=== PATIENT | male | born 1985 | race Caucasian/White ===

== ENCOUNTER 2016-11-03 01:43 | Inpatient (IN) | payer OTHER ==
[~2016-11-03] VITALS: Ht 175.3 cm; Wt 63.7 kg
[2016-11-03] MEDS ORDERED: LEVE250 PO (01:52)
[2016-11-03 01:55] VITALS: BP 120/77; PULSE 110; RESP 16; TEMP 97.9; O2SAT 97
[2016-11-03 02:32] LABS: AUTOMATED NEUTROPHIL # 4.5 TH/MM3 (1.8-7.7); BASOPHIL # 0.1 TH/MM3 (0-0.2); BASOPHIL % 0.9 % (0.0-2.0); EOSINOPHIL % 0.5 % (0.0-4.0); HEMATOCRIT 47.2 % (39.0-51.0); HEMO FLAGS DIFF FINAL; LYMPH % 27.2 % (9.0-44.0); LYMPHOCYTE # 1.9 TH/MM3 (1.0-4.8); MEAN CELL VOLUME 90.7 FL (80.0-100.0); MEAN CORPUSCULAR HEMOGLOBIN 32.2 PG (27.0-34.0); MEAN CORPUSCULAR HGB CONC 35.5 % (32.0-36.0); MONO % 7.3 % (0.0-8.0); NEUT % 64.1 % (16.0-70.0); PLATELET COUNT 242 TH/MM3 (150-450)
[2016-11-03 02:38] LABS: AMPHETAMINE, URINE NEG (NEG); BARBITURATES, URINE NEG (NEG); COCAINE, URINE NEG (NEG)
[2016-11-03 03:00] LABS: ALKALINE PHOSPHATASE 68 U/L (45-117); ALT (GPT) 43 U/L (12-78); TOTAL BILIRUBIN ADULT 0.4 MG/DL (0.2-1.0)
[2016-11-03 03:01] LABS: ANION GAP 10 MEQ/L (5-15); AST (GOT) 40 U/L (15-37); BICARBONATE 26.1 MEQ/L (21.0-32.0); BLOOD UREA NITROGEN 9 MG/DL (7-18); CHLORIDE 111 MEQ/L (98-107); GLOMERULAR FILTRATION RATE 88 ML/MIN (>89); POTASSIUM 3.9 MEQ/L (3.5-5.1); SODIUM (NA) 147 MEQ/L (136-145)
[2016-11-03] MEDS ORDERED: oxyCODONE/ACETAMINOPHEN 5 MG/325 MG TAB PO ONE (03:15)
[2016-11-03] MEDS ORDERED: NICOTINE 14 MG/24 HR PATCH TD ONE (03:45)
[2016-11-03] MEDS ORDERED: MORPHINE SULFATE 4 MG/ML INJ IV PUSH ONE ×2 (04:00→08:00)
[2016-11-03] MEDS ORDERED: ONDANSETRON HCL 4 MG/2 ML VIAL IV PUSH ONE (04:15)
--- NOTE | 2016-11-03 04:27 | RADRPT ---
EXAM DATE/TIME: 11/03/2016 03:12 [place] COMPARISON: No previous studies available for comparison. INDICATIONS : Patient states he cut himself with a razor blade, laceration. MEDICAL HISTORY : None. SURGICAL HISTORY : None. ENCOUNTER: Initial ACUITY: 1 day PAIN SCORE: 7/10 LOCATION: Left Forearm FINDINGS: Two view examination of the left forearm demonstrates no evidence of fracture or dislocation. Bony m ineralization is normal. Soft tissue laceration distal forearm. CONCLUSION: 1. No acute fracture. Jatinder Gonzalez MD on November 03, 2016 at 4:24 Board Certified Radiologist. This report was verified electronically.
--- NOTE | 2016-11-03 04:40 | PD ---
Physical Exam Time Seen by Provider: 04:00 Data Data Last Documented VS Vital Signs Date Time Temp Pulse Resp B/P Pulse Ox O2 Delivery O2 Flow Rate FiO2 11/03/16 01:55 97.9 110 16 120/77 97 Orders Complete Blood Count With Diff (11/03/16 02:05) Comprehensive Metabolic Panel (11/03/16 02:05) Drug Screen, Random Urine (11/03/16 02:05) Alcohol (Ethanol) (11/03/16 02:05) Psych Screen (11/03/16 02:05) Forearm (2vws) (11/03/16 ) Oxycodone-Acetamin 5-325 Mg (Percocet (11/03/16 03:15) Nicotine 14 Mg Patch.24 Hr (Habitrol 14 (11/03/16 03:45) Morphine Inj (Morphine Inj) (11/03/16 04:00) Ondansetron Inj (Zofran Inj) (11/03/16 04:15) Consult Hand Surgery (11/03/16 ) Labs Laboratory Tests Test 11/03/16 11/03/16 02:10 02:15 White Blood Count 7.0 TH/MM3 Red Blood Count 5.20 MIL/MM3 Hemoglobin 16.7 GM/DL Hematocrit 47.2 % Mean Corpuscular Volume 90.7 FL Mean Corpuscular Hemoglobin 32.2 PG Mean Corpuscular Hemoglobin 35.5 % Concent Red Cell Distribution Width 13.0 % Platelet Count 242 TH/MM3 Mean Platelet Volume 8.1 FL Neutrophils (%) (Auto) 64.1 % Lymphocytes (%) (Auto) 27.2 % Monocytes (%) (Auto) 7.3 % Eosinophils (%) (Auto) 0.5 % Basophils (%) (Auto) 0.9 % Neutrophils # (Auto) 4.5 TH/MM3 Lymphocytes # (Auto) 1.9 TH/MM3 Monocytes # (Auto) 0.5 TH/MM3 Eosinophils # (Auto) 0.0 TH/MM3 Basophils # (Auto) 0.1 TH/MM3 CBC Comment DIFF FINAL Differential Comment Sodium Level 147 MEQ/L Potassium Level 3.9 MEQ/L Chloride Level 111 MEQ/L Carbon Dioxide Level 26.1 MEQ/L Anion Gap 10 MEQ/L Blood Urea Nitrogen 9 MG/DL Creatinine 1.00 MG/DL Estimat Glomerular Filtration 88 ML/MIN Rate Random Glucose 84 MG/DL Calcium Level 9.0 MG/DL Total Bilirubin 0.4 MG/DL Aspartate Amino Transf 40 U/L (AST/SGOT) Alanine Aminotransferase 43 U/L (ALT/SGPT) Alkaline Phosphatase 68 U/L Total Protein 7.4 GM/DL Albumin 4.2 GM/DL Ethyl Alcohol Level 163 MG/DL Urine Opiates Screen NEG Urine Barbiturates Screen NEG Urine Amphetamines Screen NEG Urine Benzodiazepines Screen POS Urine Cocaine Screen NEG Urine Cannabinoids Screen NEG MDM Medical Record Reviewed: Yes Supervised Visit with SUKHI: No Narrative Course This patient presents with self-inflicted lacerations to the volar aspect of the left wrist, I was asked to repair the lacerations. The patient gave verbal consent. Examination reveals larger linear horizontal lacerations across the volar aspect of the left wrist as well as several smaller more superficial ones. In the more distal of the deep lacerations there is an obvious full- thickness laceration to what appears to be the palmaris longus tendon. There is also a partial flexor tendon laceration. At the most ulnar aspect of the distal wound with approximately 25% to 30% thickness injury. The patient maintains full normal range of motion and utilizing the left wrist and hand. He has limited range of motion in the left third finger secondary to a previous one. After the wounds were anesthetized and says that he can moves his left wrist at baseline. Lacerations were repaired primarily utilizing sutures. Patient tolerated procedure well. Procedures Procedure Narrative LACERATION LOCATION: Volar left wrist LENGTH: 4 cm NUMBER OF STITCHES/CHAVO: 8 REPAIR: The area of the laceration was prepped with Betadine and sterilely draped. The laceration was infiltrated with 1% lidocaine with epinephrine. The wound was copiously irrigated and explored with evidence of damage due to flexor tendons. The wound was closed using 5-0 nylon simple interrupted. This was a single layer repair. A sterile dressing was applied. The patient was advised to keep the dressing clean and dry. Patient tolerated the procedure well. LACERATION LOCATION: Volar left wrist LENGTH: 4 cm NUMBER OF STITCHES/CHAVO: 8 REPAIR: The area of the laceration was prepped with Betadine and sterilely draped. The laceration was infiltrated with 1% lidocaine with epinephrine. The wound was copiously irrigated and explored with no evidence of tendon, neurovascular damage. The wound was closed using 5-0 nylon simple interrupted. This was a single layer repair. A sterile dressing was applied. The patient was advised to keep the dressing clean and dry. Patient tolerated the procedure well. Yanick Guillermo Nov 03, 2016 04:40
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
[2016-11-03 09:22] VITALS: BP 120/65; PULSE 65; RESP 20; TEMP 98.5; O2SAT 99
[2016-11-03] MEDS ORDERED: ACETAMINOPHEN 325 MG TAB PO ONE (09:30)
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
[2016-11-03] MEDS ORDERED: ALUMINUM/MAGNESIUM/SIMETH 30 ML CUP PO PRN ×2 (13:00→14:30)
[2016-11-03] MEDS ORDERED: ACETAMINOPHEN/HYDROcodone 325 MG/5 MG TAB PO ONE (13:00)
[2016-11-03] MEDS ORDERED: MAGNESIUM HYDROXIDE SUSP 30 ML CUP PO PRN ×2 (13:00→14:30)
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
[2016-11-03] MEDS: buPROPion HCL 150 MG SUSTAINED RELEASE TAB PO SCH ×2 (14:15→20:57)
[2016-11-03] MEDS ORDERED: LORazepam 2 MG/ML VIAL IM PRN (14:30)
[2016-11-03] MEDS ORDERED: ACETAMINOPHEN 325 MG TAB PO PRN (14:30)
[2016-11-03] MEDS ORDERED: traZODone HCL 50 MG TAB PO PRN (14:30)
[2016-11-03] MEDS ORDERED: NICOTINE 21 MG/24 HR PATCH T-DERMAL SCH (14:30)
[2016-11-03 16:00] VITALS: BP 123/81; PULSE 62; RESP 12; TEMP 98.7; O2SAT 99
[2016-11-03] MEDS: ACETAMINOPHEN 325 MG TAB PO PRN (16:27)
[2016-11-03] MEDS: LORazepam 0.5 MG TAB PO PRN (19:38)
--- NOTE | 2016-11-03 23:21 | PD.ORT.PN ---
Objective Vitals Vital Signs Date Time Temp Pulse Resp B/P Pulse Ox O2 Delivery O2 Flow Rate FiO2 11/03/16 16:00 98.7 62 12 123/81 99 11/03/16 09:22 98.5 65 20 120/65 99 11/03/16 04:16 20 11/03/16 04:16 20 11/03/16 01:55 97.9 110 16 120/77 97 11/03/16 01:52 16 Result Diagram: 11/03/1620911/03/16209 Imaging Last 24 hours Impressions Radius/Ulna X-Ray 11/03/16 0000 Signed Impressions: Service Date/Time: October 03:12 - CONCLUSION: 1. No acute fracture. Jatinder Gonzalez MD Assessment & Plan Assessment and Plan Called regarding wrist laceration with laceration to palmaris longus and partial laceration to ECU by ER. Recommend outpatient followup once cleared by psychiatry. Ximena Adam MD Nov 03, 2016 23:21
[2016-11-04 06:24] VITALS: BP 123/67; PULSE 54; RESP 16; TEMP 97.6
[2016-11-04] MEDS: DIAZEPAM 5 MG TAB PO PRN ×2 (06:28→18:07)
[2016-11-04] MEDS: ACETAMINOPHEN 325 MG TAB PO PRN (06:29)
[2016-11-04 07:12] LABS: ANION GAP 5 MEQ/L (5-15); BICARBONATE 29.2 MEQ/L (21.0-32.0); BLOOD UREA NITROGEN 17 MG/DL (7-18); CHLORIDE 110 MEQ/L (98-107); GLOMERULAR FILTRATION RATE 84 ML/MIN (>89); POTASSIUM 4.2 MEQ/L (3.5-5.1); SODIUM (NA) 144 MEQ/L (136-145)
[2016-11-04 07:14] LABS: HDL CHOLESTEROL 50.6 MG/DL (40.0-60.0); LDL CHOLESTEROL 55 MG/DL (0-99)
[2016-11-04] MEDS: buPROPion HCL 150 MG SUSTAINED RELEASE TAB PO SCH ×2 (08:50→20:55)
[2016-11-04] MEDS: LORazepam 0.5 MG TAB PO PRN ×2 (08:50→21:20)
[2016-11-04] MEDS: REMOVE OLD NICODERM (NICOTINE) PATCH TD SCH (08:51)
[2016-11-04] MEDS: NICOTINE 21 MG/24 HR PATCH TD SCH (08:51)
[2016-11-04] MEDS ORDERED: REMOVE OLD NICODERM (NICOTINE) PATCH TD SCH (09:00)
[2016-11-04 10:52] LABS: HEMOGLOBIN A1a 1.2 %; HEMOGLOBIN A1b 0.8 %; HEMOGLOBIN Ao 86.4 %; HEMOGLOBIN F 1.1 %; HEMOGLOBIN LA1C 1.7 %; HEMOGLOBIN P3 3.2 %
--- NOTE | 2016-11-04 11:29 | HHI.PYPN ---
Subjective Remarks Patient was seen and discussed with the staff rn. Patient reported that he has been complaining of pain and not being able to mow his fingers which frustrates him. He wants to go home soon. Denied any active suicidal ideation intentions or plan. No behavior or management problem reported. His willing to take the medication no side effects were complained. Continue with the same treatment Review of Systems Except as stated in HPI: all other systems reviewed are Neg Psychiatric: COMPLAINS OF: Anxiety, Mood changes, Depression Objective Alert: Yes [place]: Person (ox4) Mood: Anxious, Depressed Affect: Euthymic Memory Intact: Recent (mildly impaired) Hallucinations: Other (negative) Delusions: No Delusion Type: Other (no obvious delusional material voiced) Suicidal: Ideation (denies any) Homicidal: Ideation (denies any) Insight/Judgement Fair Labs Test 11/04/16 06:00 Sodium Level 144 MEQ/L Potassium Level 4.2 MEQ/L Chloride Level 110 MEQ/L Carbon Dioxide Level 29.2 MEQ/L Anion Gap 5 MEQ/L Blood Urea Nitrogen 17 MG/DL Creatinine 1.04 MG/DL Estimat Glomerular Filtration 84 ML/MIN Rate Random Glucose 75 MG/DL Calcium Level 8.6 MG/DL Triglycerides Level 113 MG/DL Cholesterol Level 128 MG/DL LDL Cholesterol 55 MG/DL HDL Cholesterol 50.6 MG/DL Cholesterol/HDL Ratio 2.52 RATIO Vitals/IOs Vital Signs Date Time Temp Pulse Resp B/P Pulse Ox O2 Delivery O2 Flow Rate FiO2 11/04/16 06:24 97.6 54 16 123/67 11/03/16 16:00 99 Assessment & Plan Problem List: (1) Post traumatic stress disorder ICD Code: F43.10 (2) Substance induced mood disorder ICD Code: F19.94 Assessment & Plan Estimated LOS: days Justification for Cont. Inpt. Monitoring of the medication and safety issue. Watch for any withdrawal symptoms Request HC Surrog/Guard Advoc?: No Hector Calle MD Nov 04, 2016 11:29
[2016-11-04] MEDS: diphenhydrAMINE HCL 50 MG CAP PO PRN ×2 (13:35→23:58)
--- NOTE | 2016-11-04 14:44 | PD.CONS ---
HPI Service [facility] Consult Requested By Psychiatry Reason for Consult Left wrist pain Primary Care Physician No Primary Care Physician Diagnoses: History of Present Illness This is a 31-year-old male with history of PTSD and seizures, Alvarez acted, admitted at the psych unit after suicidal ideations after cutting his wrist. At the emergency department, patient's wrist was sutured. We are being consulted for pain management and decreased range of motion. Per patient, since he cut his wrist, he cannot flex his fingers or perform adduction. This is limited by severe pain. Patient denies any nausea, vomiting, fever or chills. No chest pain. Sensation is intact allegedly. Per patient, he has history of seizures but has stopped several years ago. Seizures were secondary to a head trauma. Review of Systems ROS Limitations: Other (All other pertinent systems were reviewed and are negative.) Past Family Social History Allergies: Coded Allergies: Codeine (Verified Allergy, Unknown, 11/03/16) Tramadol (Verified Allergy, Unknown, 11/03/16) Past Medical History History of seizures PTSD Past Surgical History Right thumb surgery Gage surgery Right middle finger surgery Reported Medications None Family History No history of heart problems in the family Social History Smokes about one pack a day, he started August 2016. Occasional alcohol use. Physical Exam Vital Signs Vital Signs Date Time Temp Pulse Resp B/P Pulse Ox O2 Delivery O2 Flow Rate FiO2 11/04/16 06:24 97.6 54 16 123/67 11/03/16 16:00 98.7 62 12 123/81 99 Physical Exam Not in distress, well-nourished, looks stated age PERRL, pink conjunctiva without injection, anicteric Nose without bleeding, airway patent, oropharynx clear Supple neck, no masses or thyromegaly, trachea midline Normal rate and regular rhythm, no murmurs gallops or rubs appreciated. Clear to auscultation and symmetric bilaterally, normal respiratory effort. Normal bowel sounds, soft, non-tender, nondistended, no guarding. Extremities without clubbing, cyanosis, or edema. No rash of generalized distribution. Skin is warm and dry. Wrist laceration ventral aspect, well sutured, mildly tender on palpation, no discharge, no surrounding erythema, healing well. Left hand, decreased range of motion, with severe breakthrough tenderness with passive range of motion. Active range of motion is severely decreased. Sensation is intact and symmetric left and right hand. AAO x3, no cranial nerve deficits, moves all 4 extremities, no focal neurologic deficits Normal mood, appropriate affect Laboratory Laboratory Tests Test 11/04/16 06:00 Sodium Level 144 Potassium Level 4.2 Chloride Level 110 Carbon Dioxide Level 29.2 Anion Gap 5 Blood Urea Nitrogen 17 Creatinine 1.04 Estimat Glomerular Filtration 84 Rate Random Glucose 75 Hemoglobin A1c 4.9 Calcium Level 8.6 Triglycerides Level 113 Cholesterol Level 128 LDL Cholesterol 55 HDL Cholesterol 50.6 Cholesterol/HDL Ratio 2.52 Result Diagram: 11/03/16 0210 11/04/16 0600 Assessment and Plan Assessment and Plan This is a 31-year-old male admitted to psych unit for suicidal ideations, we were consulted for left wrist pain and decreased range of motion Left wrist pain with decreased range of motion-suspicious for ligament/tendon injury, start Percocet for pain control, consult had surgery. Sutures are healing well. No leukocytosis, BMP is normal. Recheck CBC in a few days. X- ray personally reviewed did not show an acute fracture. History of seizures-. Standard Dilantin, no seizures for the last few years, monitor for now. PTSD with suicidal ideation-further management per psychiatry El Osborne MD Nov 04, 2016 14:44
[2016-11-04] MEDS ORDERED: ACETAMINOPHEN 325 MG TAB PO PRN (14:45)
[2016-11-04] MEDS ORDERED: NALOXONE HCL 0.4 MG/ML AMP IV PRN (14:45)
[2016-11-04] MEDS: oxyCODONE/ACETAMINOPHEN 5 MG/325 MG TAB PO PRN ×2 (15:22→21:45)
[2016-11-04 19:51] VITALS: BP 106/62; PULSE 66; RESP 16; TEMP 98.9; O2SAT 100
[2016-11-04] MEDS: oxyCODONE/ACETAMINOPHEN 10 MG/325 MG TAB PO PRN (19:56)
--- NOTE | 2016-11-05 01:55 | PD.ORT.PN ---
Subjective Subjective Remarks Patient reports pain left wrist, denies paresthesias Objective Vitals Vital Signs Date Time Temp Pulse Resp B/P Pulse Ox O2 Delivery O2 Flow Rate FiO2 11/04/16 19:51 98.9 66 16 106/62 100 11/04/16 06:24 97.6 54 16 123/67 Result Diagram: 11/03/16 0210 11/04/16 0600 Imaging Last 24 hours Impressions Radius/Ulna X-Ray 11/03/16 0000 Signed Impressions: Service Date/Time: October 03:12 - CONCLUSION: 1. No acute fracture. Jatinder Gonzalez MD Objective Remarks sutures in place, compartments soft and compressible, sitlt m/u/r, 2+ radial and ulnar pulses, patient unable to make a full fist but able to fire fds/fdp all fingers except middle finger s/p old injury left middle finger Assessment & Plan Assessment and Plan Patient having increasing pain but no sign of compartment syndrome or injury to finger flexors. Denies paresthesias. Pain control per primary team. OT for ROM. Recommend outpatient followup once cleared by psychiatry. Ximena Adam MD Nov 05, 2016 01:55
[2016-11-05] MEDS: oxyCODONE/ACETAMINOPHEN 5 MG/325 MG TAB PO PRN ×2 (05:09→23:35)
[2016-11-05 05:45] VITALS: BP 113/68; PULSE 59; RESP 18; TEMP 98.1
[2016-11-05] MEDS: DIAZEPAM 5 MG TAB PO PRN ×2 (06:04→17:59)
[2016-11-05] MEDS: oxyCODONE/ACETAMINOPHEN 10 MG/325 MG TAB PO PRN ×4 (08:31→20:27)
[2016-11-05] MEDS: buPROPion HCL 150 MG SUSTAINED RELEASE TAB PO SCH ×2 (08:54→20:25)
[2016-11-05] MEDS: REMOVE OLD NICODERM (NICOTINE) PATCH TD SCH (09:00)
[2016-11-05] MEDS: LORazepam 0.5 MG TAB PO PRN ×2 (09:18→21:36)
[2016-11-05] MEDS: NICOTINE 21 MG/24 HR PATCH TD SCH (09:19)
[2016-11-05] MEDS: diphenhydrAMINE HCL 50 MG CAP PO PRN ×2 (12:55→23:34)
--- NOTE | 2016-11-05 14:46 | HHI.PYPN ---
Subjective Remarks Patient was seen and case discussed with nursing. Patient reiterates that his cutting was not secondary to a suicide attempt but in a rational decision thinking that he would be going to alf. Admits to drinking that night but says was only 4 beers. Says his mood is "good." Denies suicidal ideations thought or plan. Admits to history of psychiatric treatment while in alf Objective Alert: Yes [place]: Person (ox4) Mood: Anxious, Depressed Affect: Euthymic Memory Intact: Recent (mildly impaired) Hallucinations: Other (negative) Delusions: No Delusion Type: Other (no obvious delusional material voiced) Suicidal: Ideation (denies any) Homicidal: Ideation (denies any) Insight/Judgement Poor Vitals/IOs Vital Signs Date Time Temp Pulse Resp B/P Pulse Ox O2 Delivery O2 Flow Rate FiO2 11/05/16 05:45 98.1 59 18 113/68 11/04/16 19:51 100 Assessment & Plan Problem List: (1) Post traumatic stress disorder ICD Code: F43.10 (2) Substance induced mood disorder ICD Code: F19.94 Assessment & Plan Continue current treatment plan Justification for Cont. Inpt. Patient would decompensate in a less restrictive setting Request HC Surrog/Guard Advoc?: No Brody Gray DO Nov 05, 2016 14:46
--- NOTE | 2016-11-05 15:42 | HHI.PR ---
Subjective Remarks Follow-up left wrist laceration. Patient seen today to inpatient psychiatric unit. Patient reports the pain is controlled with pain medication although it pain medication only last 3-4 hours does not last the entire 6 hour interval between doses. Patient continues to have decreased in range of motion left hand and wrist. Per patient, since he cut his wrist, he cannot flex his fingers or perform adduction. This is limited by severe pain. Patient denies any nausea, vomiting, fever or chills. No chest pain. Sensation is intact allegedly. Per patient, he has history of seizures but has stopped several years ago. Seizures were secondary to a head trauma. Objective Vitals Vital Signs Date Time Temp Pulse Resp B/P Pulse Ox O2 Delivery O2 Flow Rate FiO2 11/05/16 05:45 98.1 59 18 113/68 11/04/16 19:51 98.9 66 16 106/62 100 Result Diagram: 11/03/16 0210 11/04/16 0600 Objective Remarks Not in distress, well-nourished, looks stated age PERRL, pink conjunctiva without injection, anicteric Nose without bleeding, airway patent, oropharynx clear Supple neck, no masses or thyromegaly, trachea midline Normal rate and regular rhythm, no murmurs gallops or rubs appreciated. Clear to auscultation and symmetric bilaterally, normal respiratory effort. Normal bowel sounds, soft, non-tender, nondistended, no guarding. Extremities without clubbing, cyanosis, or edema. No rash of generalized distribution. Skin is warm and dry. Wrist laceration ventral aspect, well sutured, mildly tender on palpation, no discharge, no surrounding erythema, healing well. Left hand, decreased range of motion, with severe breakthrough tenderness with passive range of motion. Active range of motion is severely decreased. Sensation is intact and symmetric left and right hand. AAO x3, no cranial nerve deficits, moves all 4 extremities, no focal neurologic deficits Normal mood, appropriate affect A/P Assessment and Plan This is a 31-year-old male admitted to psych unit for suicidal ideations, we were consulted for left wrist pain and decreased range of motion Left wrist pain with decreased range of motion-suspicious for ligament/tendon injury, Adjust Percocet to 10 mg every 4 hours as needed for pain control, Also seen by hand surgery-recommends outpatient follow-up after discharge Occupational therapy ordered Sutures are healing well. No leukocytosis, BMP is normal. Recheck CBC in a few days. History of seizures-. Continue Dilantin, no seizures for the last few years, monitor for now. PTSD with suicidal ideation-further management per psychiatry DVT prophylaxis patient is ambulatory Discussed plan of care with patient and RN Patient appears medically stable at this time will sign off if patient's condition changes or further assistance is needed please reconsult. Chrissy Ornelas Nov 05, 2016 15:42
[2016-11-05 19:12] VITALS: BP 119/67; PULSE 66; RESP 18; O2SAT 100
[2016-11-06 05:08] VITALS: BP 97/55; PULSE 43; RESP 18; O2SAT 98
[2016-11-06] MEDS: buPROPion HCL 150 MG SUSTAINED RELEASE TAB PO SCH ×2 (08:28→20:20)
[2016-11-06] MEDS: oxyCODONE/ACETAMINOPHEN 10 MG/325 MG TAB PO PRN ×4 (08:28→20:37)
[2016-11-06] MEDS: DIAZEPAM 5 MG TAB PO PRN ×2 (08:28→20:36)
[2016-11-06] MEDS: REMOVE OLD NICODERM (NICOTINE) PATCH TD SCH (09:00)
[2016-11-06] MEDS: NICOTINE 21 MG/24 HR PATCH TD SCH (09:38)
[2016-11-06] MEDS: LORazepam 0.5 MG TAB PO PRN ×2 (10:55→23:05)
[2016-11-06] MEDS: diphenhydrAMINE HCL 50 MG CAP PO PRN ×2 (12:53→23:05)
--- NOTE | 2016-11-06 14:05 | HHI.PYPN ---
Subjective Remarks Patient was seen and case discussed with nursing. Patient minimizes his cutting and reasons for admission. Perseverative on discharge. He is behaving well and compliant with medications. Denies suicidal ideations thought content or plan Objective Alert: Yes [place]: Person (ox4) Mood: Anxious, Depressed Affect: Euthymic Memory Intact: Recent (mildly impaired) Hallucinations: Other (negative) Delusions: No Delusion Type: Other (no obvious delusional material voiced) Suicidal: Ideation (denies any) Homicidal: Ideation (denies any) Insight/Judgement Poor Vitals/IOs Vital Signs Date Time Temp Pulse Resp B/P Pulse Ox O2 Delivery O2 Flow Rate FiO2 11/06/16 05:08 43 18 97/55 98 11/05/16 05:45 98.1 Assessment & Plan Problem List: (1) Post traumatic stress disorder ICD Code: F43.10 (2) Substance induced mood disorder ICD Code: F19.94 Assessment & Plan Continue current treatment plan Justification for Cont. Inpt. Patient would decompensate in a less restrictive setting Request HC Surrog/Guard Advoc?: No Brody Gray DO Nov 06, 2016 14:05
[2016-11-06 18:55] VITALS: BP 106/64; PULSE 67; RESP 16; O2SAT 97
[2016-11-07] MEDS: oxyCODONE/ACETAMINOPHEN 10 MG/325 MG TAB PO PRN ×5 (00:30→19:57)
[2016-11-07 06:37] VITALS: BP 99/65; PULSE 52; RESP 20; TEMP 97; O2SAT 98
[2016-11-07] MEDS: diphenhydrAMINE HCL 50 MG CAP PO PRN ×2 (06:43→10:29)
[2016-11-07] MEDS: REMOVE OLD NICODERM (NICOTINE) PATCH TD SCH (08:50)
[2016-11-07] MEDS: NICOTINE 21 MG/24 HR PATCH TD SCH (08:50)
[2016-11-07] MEDS: buPROPion HCL 150 MG SUSTAINED RELEASE TAB PO SCH ×2 (08:51→20:00)
[2016-11-07] MEDS: DIAZEPAM 5 MG TAB PO PRN ×2 (08:53→20:26)
[2016-11-07] MEDS: oxyCODONE/ACETAMINOPHEN 5 MG/325 MG TAB PO PRN (10:16)
[2016-11-07] MEDS: LORazepam 0.5 MG TAB PO PRN ×2 (11:07→23:04)
--- NOTE | 2016-11-07 12:46 | HHI.PYPN ---
Subjective Remarks Patient was seen and case discussed with nursing. Patient is pleasant and cooperative with exam. He is less perseverative on discharge today and says "the alejandro couple more days." Bereket used to deny the severity of suicide attempt. He is wondering about why physical therapy never came back. Complaining of pain and is being treated with Percocet. Eating well on the unit. Denies auditory visual hallucinations. Mood is "getting better." Objective Alert: Yes [place]: Person (ox4) Mood: Anxious, Depressed Affect: Euthymic Memory Intact: Recent (mildly impaired) Hallucinations: Other (negative) Delusions: No Delusion Type: Other (no obvious delusional material voiced) Suicidal: Ideation (denies any) Homicidal: Ideation (denies any) Insight/Judgement Poor Vitals/IOs Vital Signs Date Time Temp Pulse Resp B/P Pulse Ox O2 Delivery O2 Flow Rate FiO2 11/07/16 06:37 97.0 52 20 99/65 98 Assessment & Plan Problem List: (1) Post traumatic stress disorder ICD Code: F43.10 (2) Substance induced mood disorder ICD Code: F19.94 Assessment & Plan Nursing will call physical therapy. Wound consult Justification for Cont. Inpt. Patient will decompensate in a less restrictive setting Request HC Surrog/Guard Advoc?: No Brody Gray DO Nov 07, 2016 12:46
[2016-11-07 19:12] VITALS: BP 123/73; PULSE 60; RESP 18; TEMP 98.9; O2SAT 100
[2016-11-08] MEDS: oxyCODONE/ACETAMINOPHEN 10 MG/325 MG TAB PO PRN ×4 (00:02→12:34)
[2016-11-08] MEDS: diphenhydrAMINE HCL 50 MG CAP PO PRN ×3 (00:04→12:33)
[2016-11-08] MEDS: buPROPion HCL 150 MG SUSTAINED RELEASE TAB PO SCH (08:24)
[2016-11-08] MEDS: NICOTINE 21 MG/24 HR PATCH TD SCH (08:24)
[2016-11-08] MEDS: REMOVE OLD NICODERM (NICOTINE) PATCH TD SCH (08:31)
[2016-11-08] MEDS: DIAZEPAM 5 MG TAB PO PRN (08:37)
[2016-11-08] MEDS: LORazepam 0.5 MG TAB PO PRN (11:14)
--- NOTE | 2016-11-08 11:16 | HHI.DS ---
Psychiatry Discharge Summary Inpatient Psychiatric care?: Yes Advance Directive: No Reason Not Provided: patient declined Mental Health AdvanceDirective: No Health Care Proxy: No Admission Admission Date Nov 03, 2016 at 12:54 Admission Diagnosis: (1) Post traumatic stress disorder ICD Code: F43.10 (2) Substance induced mood disorder ICD Code: F19.94 GAF Score: 45 Brief History This is a 31-year-old white male who was admitted after he was medically clear and stable following suicide attempt. Patient claimed that he was drinking he has a problem drinking for the last several years. He got into an argument with his and barricaded himself and attempted to cut his forearm. And he was Alvarez acted for suicide attempt. Patient claimed that he has been Alvarez acted 7 times in the past few years. He was recently released from the long-term he has been in long-term for 10 years out of his 31 years of age. Patient denies any active auditory or visual hallucinations. Denies any paranoia. No behavior or pet management problem reported. Patient claimed that the Valium does seem to help him he wants to have it maybe 5 mg once a day and keeps his nerves calm. Patient ran out of the medication and he got into argument with his . Patient claimed that he has not been following up as an outpatient or going to but now he is willing to. He is complaining of feeling pain in his arm. In the past she has taken Celexa and Wellbutrin Depakote and several other antidepressant but had some side effect but he is willing to try Wellbutrin at this point. At the present time patient claimed that he is not suicidal but willing to go to psychiatric unit and cooperated with the treatment Tobacco Use In Past 30 Days: No Tobacco Past 30 Days Alcohol Use: 2-3 Times Per Week Hospital Course Patient was started on supportive treatment. He persevered in all the therapeutic activity on the floor. His medication was adjusted. Patient started to feel better was willing to follow-up as an outpatient and get some help in therapy. He denied any suicidal ideation intentions or plan. No side effects were complained. Patient denied any auditory or visual hallucinations. He was feeling hopeful about the future at that point arrangements were made for him to be discharged and follow-up as an outpatient Results Blood Pressure 123 / 73 Vital Signs Date Time Temp Pulse Resp B/P Pulse Ox O2 Delivery O2 Flow Rate FiO2 11/07/16 19:12 98.9 60 18 123/73 100 Laboratory Results Test 11/04/16 06:00 Hemoglobin A1c 4.9 % (4.3-6.0) Triglycerides Level 113 MG/DL (42-150) Cholesterol Level 128 MG/DL (120-200) LDL Cholesterol 55 MG/DL (0-99) HDL Cholesterol 50.6 MG/DL (40.0-60.0) Summary of Major Lab Results Nothing significant Summary of Procedures None Imaging Last Impressions Radius/Ulna X-Ray 11/03/16 0000 Signed Impressions: Service Date/Time: , November 03, 2016 03:12 - CONCLUSION: 1. No acute fracture. Jatinder Gonzalez MD Pending results at discharge: No Medications # of Antipsychotic meds at D/C: 1 Appropriate >1 Antipsych meds?: 2 Approp Antipsych med options 1 - Minimum of three failed multiple trials of monotherapy. Discharge Discharge Date: Nov 08, 2016 Discharge Diagnosis: (1) Post traumatic stress disorder Diagnosis: Secondary ICD Code: F43.10 (2) Substance induced mood disorder Diagnosis: Principal ICD Code: F19.94 Mental Status Exam at Disch Patient was alert oriented 3 cooperative casually dressed. He was feeling hopeful about the future. Willing to abstain from any substance use and/or abuse and follow-up as an outpatient. Patient denied any suicidal ideation intentions or plan. Denied any auditory or visual hallucinations. No side effects were complained and willing to take the medication upon discharge Pt Condition on Discharge: Stable Discharge Disposition: Discharge Home Discharge Instructions Diet Instructions: As Tolerated, No Restrictions Activities you can perform: Regular-No Restrictions Scheduled Appointment: Harjinder Wilson Discharge Time <= 30 minutes Discharge/Advance Care Plan Health Problems: (1) Post traumatic stress disorder (2) Substance induced mood disorder Goals to promote your health * To prevent worsening of your condition and complications * To maintain your health at the optimal level Directions to meet your goals Take your medications as prescribed Follow your dietary instruction Follow activity as directed Keep your appointments as scheduled Take your immunizations and boosters as scheduled If your symptoms worsen call your PCP, if no PCP go to Urgent Care Center or Emergency Room For 15/05 questions related to your inpatient stay or results of tests pending at discharge, please contact Dr. Hector Calle at Smoking is Dangerous to Your Health. Avoid second hand smoking Hector Calle MD Nov 08, 2016 11:16
[2016-11-08] MEDS ORDERED: BUPR150CR PO (11:18)
[2016-11-08] MEDS ORDERED: DIAZ5 PO (11:18)
[2016-11-08] MEDS ORDERED: OXYC1TAB36 PO (14:53)
== END 2016-11-08 15:05 | disposition home or self-care (01) | DRG 882 ==
LOC: NEPE 01:43 → NEDA 12:54 → UNDOADMIN 15:51 → H260 15:51
PROVIDERS: ADMIT Psychiatry & Neurology Psychiatry; ATTEND Psychiatry & Neurology Psychiatry
PROC: 0HQEXZZ Repair Left Lower Arm Skin, External Approach (ICD-10-PCS; principal; 2016-11-03)
DX: F43.10 Post-traumatic stress disorder, unspecified (principal); R45.851 Suicidal ideations; F10.24 Alcohol dependence with alcohol-induced mood disorder; S66.822A Laceration of other specified muscles, fascia and tendons at wrist and hand level, left hand, initial encounter; F60.7 Dependent personality disorder; F51.5 Nightmare disorder; F60.2 Antisocial personality disorder; S61.512A Laceration without foreign body of left wrist, initial encounter; X78.8XXA Intentional self-harm by other sharp object, initial encounter; Y92.003 Bedroom of unspecified non-institutional (private) residence as the place of occurrence of the external cause; Y90.6 Blood alcohol level of 120-199 mg/100 ml; Z62.810 Personal history of physical and sexual abuse in childhood; Z88.5 Allergy status to narcotic agent
CPT/HCPCS: 12004; 73090; 80048; 80053; 80061; 80307; 80320; 83036; 85025; 96374; 96375; 96376; J2270; J2405; Q0163

== ENCOUNTER 2017-01-13 12:32 | Emergency (ER) | payer MEDICAID, OTHER ==
[~2017-01-13] VITALS: Ht 180.3 cm; Wt 68.0 kg
[~2017-01-13 12:32] MED LIST: BUPR150CR PO; DIAZ5 PO; LEVE250 PO; OXYC1TAB36 PO
[2017-01-13 12:34] VITALS: BP 123/93; PULSE 134; RESP 20; TEMP 97.7; O2SAT 95
[2017-01-13 12:48] VITALS: RESP 18; O2SAT 97
--- NOTE | 2017-01-13 12:53 | PD ---
HPI Chief Complaint: Seizure Time Seen by Provider: 12:49 Travel History International Travel<30 days: No Contact w/Intl Traveler<30days: No Traveled to known affect area: No History of Present Illness HPI 31-year-old male presents to emergency department status post seizure. Patient's states he has seizure in the car. Patient states history of head injury in 2008 with a "head bleed" where he states he had several seizures afterwards. He has not had any in years. Patient states his last seizure was 2010. Patient was seen a neurologist in [place]. Patient states no recent illness. Patient states no recent head trauma. Patient denies alcohol or substance abuse. Patient is complaining now of a headache and generalized nausea and malaise. His states he did not hit his head with seizure. He denies any dental trauma or tongue trauma. He did not lose bowel or bladder control. The patient does not recall his seizure. He is allergic to codeine and tramadol. PFSH Past Medical History Diminished Hearing: No Seizures: Yes Social History Alcohol Use: Yes Tobacco Use: No Substance Use: No (denies. patient is positive for benzo) Allergies-Medications (Allergen,Severity, Reaction): Coded Allergies: Codeine (Verified Adverse Reaction, Severe, seizure, 01/13/17) Tramadol (Verified Adverse Reaction, Severe, seizure, 01/13/17) Reported Meds & Prescriptions Reported Meds & Active Scripts Active Ibuprofen 600 Mg Tab 600 Mg PO Q6H PRN Acetaminophen Extra Strength (Acetaminophen) 500 Mg Cap 1,000 Mg PO Q6H PRN Dilantin (Phenytoin Extended) 100 Mg Cap 100 Mg PO TID Oxycodone-Acetaminophen 10-325 mg Tab 1 Tab PO Q4HR PRN Valium (Diazepam) 5 Mg Tab 5 Mg PO Q12H PRN 10 Days Wellbutrin SR 12 HR (Bupropion HCl) 150 Mg Tab 150 Mg PO BID 10 Days Reported Keppra (Levetiracetam) 250 Mg Tab 250 Mg PO BID Review of Systems Except as stated in HPI: all other systems reviewed are Neg General / Constitutional: No: Fever Eyes: No: Diploplia, Blurred Vision, Photophobia, Drainage, Redness, Foreign Body Sensation, Pain, Tearing, Blind Spots, Visual changes, Blindness HENT: Positive: Headaches, No: Vertigo, Lightheadedness, Sore Throat, Rhinitis , Rhinorrhea, Congestion, Nosebleed, Neck Stiffness, Neck Pain, Earache Cardiovascular: No: Chest Pain or Discomfort Respiratory: No: Cough, Shortness of Breath, Wheezing Gastrointestinal: Positive: Nausea, No: Vomiting, Diarrhea, Abdominal Pain Genitourinary: No: Dysuria Musculoskeletal: Positive: Myalgias, No: Arthralgias, Limited ROM, Pain Skin: No Rash Neurologic: No: Weakness Psychiatric: No: Depression Endocrine: No: Polydipsia Hematologic/Lymphatic: No: Easy Bruising Physical Exam Narrative GENERAL: Patient appears in moderate distress. He is alert and oriented and complaining of headache. SKIN: Warm and dry. Normal color. Normal turgor. No signs of trauma. No diaphoresis. HEAD: Atraumatic. Normocephalic. EYES: Pupils equal and round. No scleral icterus. No injection or drainage. ENT: No nasal bleeding or discharge. Mucous membranes pink and moist. No acute dental or tongue or buccal membrane injury. Pharynx is normal. Airway is patent. NECK: Trachea midline. No JVD. No bony tenderness or step-off. Range of motion is full and supple. CARDIOVASCULAR: Regular rate and rhythm. RESPIRATORY: No accessory muscle use. Clear to auscultation. Breath sounds equal bilaterally. GASTROINTESTINAL: Abdomen soft, non-tender, nondistended. Hepatic and splenic margins not palpable. MUSCULOSKELETAL: Extremities without clubbing, cyanosis, or edema. No obvious deformities. NEUROLOGICAL: Awake and alert. No obvious cranial nerve deficits. Motor grossly within normal limits. Five out of 5 muscle strength in the arms and legs. Normal speech. PSYCHIATRIC: Appropriate mood and affect; insight and judgment normal. Data Data Last Documented VS Vital Signs Date Time Temp Pulse Resp B/P Pulse Ox O2 Delivery O2 Flow Rate FiO2 01/13/17 13:09 98 17 125/86 99 Room Air 01/13/17 12:34 97.7 Orders Complete Blood Count With Diff (01/13/17 12:46) Alcohol (Ethanol) (01/13/17 12:46) Drug Screen, Random Urine (01/13/17 12:46) Electrocardiogram (01/13/17 ) Ct Brain W/O Iv Contrast(Rout) (01/13/17 ) Blood Glucose (01/13/17 12:46) Ecg Monitoring (01/13/17 12:46) Iv Access Insert/Monitor (01/13/17 12:46) Oximetry (01/13/17 12:46) Comprehensive Metabolic Panel (01/13/17 12:46) Sodium Chloride 0.9% Flush (Ns Flush) (01/13/17 13:00) Lorazepam Inj (Ativan Inj) (01/13/17 13:00) Phenytoin Inj (Dilantin Inj) (01/13/17 13:00) Urinalysis - C+S If Indicated (01/13/17 12:46) Morphine Inj (Morphine Inj) (01/13/17 13:00) Prochlorperazine Inj (Compazine Inj) (01/13/17 13:45) Diphenhydramine Inj (Benadryl Inj) (01/13/17 13:45) Sodium Chlor 0.9% 1000 Ml Inj (Ns 1000 M (01/13/17 13:45) Labs Laboratory Tests Test 01/13/17 13:00 White Blood Count 19.3 TH/MM3 Red Blood Count 5.35 MIL/MM3 Hemoglobin 16.7 GM/DL Hematocrit 49.2 % Mean Corpuscular Volume 91.9 FL Mean Corpuscular Hemoglobin 31.1 PG Mean Corpuscular Hemoglobin 33.9 % Concent Red Cell Distribution Width 13.1 % Platelet Count 235 TH/MM3 Mean Platelet Volume 8.8 FL Neutrophils (%) (Auto) 87.0 % Lymphocytes (%) (Auto) 4.6 % Monocytes (%) (Auto) 8.3 % Eosinophils (%) (Auto) 0.1 % Basophils (%) (Auto) 0.0 % Neutrophils # (Auto) 16.8 TH/MM3 Lymphocytes # (Auto) 0.9 TH/MM3 Monocytes # (Auto) 1.6 TH/MM3 Eosinophils # (Auto) 0.0 TH/MM3 Basophils # (Auto) 0.0 TH/MM3 CBC Comment DIFF FINAL Differential Comment Sodium Level 139 MEQ/L Potassium Level 3.4 MEQ/L Chloride Level 101 MEQ/L Carbon Dioxide Level 20.9 MEQ/L Anion Gap 17 MEQ/L Blood Urea Nitrogen 16 MG/DL Creatinine 1.53 MG/DL Estimat Glomerular Filtration 54 ML/MIN Rate Random Glucose 126 MG/DL Calcium Level 10.0 MG/DL Total Bilirubin 1.8 MG/DL Aspartate Amino Transf 14 U/L (AST/SGOT) Alanine Aminotransferase 19 U/L (ALT/SGPT) Alkaline Phosphatase 95 U/L Total Protein 8.4 GM/DL Albumin 4.4 GM/DL Ethyl Alcohol Level LESS THAN 3 MG/DL MDM Medical Decision Making Medical Screen Exam Complete: Yes Emergency Medical Condition: Yes Differential Diagnosis Seizure. Headache. Possible intracranial bleed. Postictal. Narrative Course Patient appears postictal and in moderate distress. Labs ordered including CBC, CMP, urinalysis, urine drug screen, alcohol level. EKG shows normal sinus rhythm with nonspecific ST changes. This reviewed with Dr. Witt. IV access is obtained patient is given 4 mg IV Zofran, 1000 mg IV Dilantin, 1 mg lorazepam IV. Patient is also given 2 mg morphine IV for headache. CT of the brain is ordered. Patient is discussed and seen with Dr. Witt. Patient continued complaining of headache with Dr. Witt ordered 10 mg Compazine IV and 25 mg diphenhydramine IV. CBC showed leukocytosis of 19.3, CMP shows sodium 139, potassium 3.4, BUN 16, creatinine 1.53, random glucose 126, serum alcohol of less than 3 Urinalysis and urine drug screen are canceled. CT scan of the head is negative. Patient will be discharged home with Dilantin 100 mg 3 times a day #90. Patient also given acetaminophen 500 mg 2 tabs every 6 hours when necessary #60. Patient also given ibuprofen 600 mg 4 times a day when necessary #40. Patient is to follow-up with his neurologist in [place] soon as possible. Patient can return the emergency Department with worsening symptoms as needed. Diagnosis Primary Impression: Seizure Referrals: Neurologist Patient Instructions: General Instructions, New-Onset Seizure in Adults (ED) Additional Instructions: CT scan of the head is negative. Patient will be discharged home with Dilantin 100 mg 3 times a day #90. Patient also given acetaminophen 500 mg 2 tabs every 6 hours when necessary #60. Patient also given ibuprofen 600 mg 4 times a day when necessary #40. Patient is to follow-up with his neurologist in [place] soon as possible. Patient can return the emergency Department with worsening symptoms as needed. Med/Other Pt SpecificInfo: Prescription(s) given Scripts Ibuprofen 600 Mg [id number] Mg PO Q6H PRN (Pain/Inflammation) #40 TAB Prov:Leticia Witt MD 01/13/17 Acetaminophen (Acetaminophen Extra Strength)500 Mg Cap1,000 Mg PO Q6H PRN (PAIN SCALE 4 TO 10) #60 CAP Ref 1 Prov:Leticia Witt MD 01/13/17 Phenytoin Extended (Dilantin)100 Mg Cue315 Mg PO TID #90 CAP Ref 0 Prov:Leticia Witt MD 01/13/17 Disposition: 01 DISCHARGE HOME Condition: Stable Randell Rees Jan 13, 2017 12:53
[2017-01-13] MEDS ORDERED: MORPHINE SULFATE 4 MG/ML INJ IV PUSH ONE (13:00)
[2017-01-13] MEDS ORDERED: LORazepam 2 MG/ML VIAL IVS ONE (13:00)
[2017-01-13] MEDS ORDERED: SODIUM CHLORIDE 0.9% FLUSH 10 ML FLUSH IVF PRN (13:00)
[2017-01-13] MEDS ORDERED: PHENYTOIN INJ 1,000 MG in SODIUM CHLORIDE 0.9% INJ 100 ML IV ONE (13:00)
[2017-01-13 13:09] VITALS: BP 125/86; PULSE 98; RESP 17; O2SAT 99
[2017-01-13 13:30] LABS: AUTOMATED NEUTROPHIL # 16.8 TH/MM3 (1.8-7.7); EOSINOPHIL % 0.1 % (0.0-4.0); HEMATOCRIT 49.2 % (39.0-51.0); HEMO FLAGS DIFF FINAL; LYMPH % 4.6 % (9.0-44.0); LYMPHOCYTE # 0.9 TH/MM3 (1.0-4.8); MEAN CELL VOLUME 91.9 FL (80.0-100.0); MEAN CORPUSCULAR HEMOGLOBIN 31.1 PG (27.0-34.0); MEAN CORPUSCULAR HGB CONC 33.9 % (32.0-36.0); MONO % 8.3 % (0.0-8.0); PLATELET COUNT 235 TH/MM3 (150-450); RED BLOOD COUNT 5.35 MIL/MM3 (4.50-5.90); RED CELL DISTRIBUTION WIDTH 13.1 % (11.6-17.2); WHITE BLOOD COUNT 19.3 TH/MM3 (4.0-11.0)
[2017-01-13] MEDS ORDERED: PROCHLORPERAZINE INJ 10 MG/2 ML VIAL IVS ONE (13:45)
[2017-01-13] MEDS ORDERED: SODIUM CHLOR 0.9% 1000 ML INJ 1,000 ML IV ONE (13:45)
[2017-01-13] MEDS ORDERED: diphenhydrAMINE HCL 50 MG/ML VIAL IV PUSH ONE (13:45)
[2017-01-13 13:46] LABS: ANION GAP 17 MEQ/L (5-15)
[2017-01-13 13:49] LABS: ALKALINE PHOSPHATASE 95 U/L (45-117); ALT (GPT) 19 U/L (12-78); AST (GOT) 14 U/L (15-37); BICARBONATE 20.9 MEQ/L (21.0-32.0); BLOOD UREA NITROGEN 16 MG/DL (7-18); CHLORIDE 101 MEQ/L (98-107); GLOMERULAR FILTRATION RATE 54 ML/MIN (>89); POTASSIUM 3.4 MEQ/L (3.5-5.1); SODIUM (NA) 139 MEQ/L (136-145); TOTAL BILIRUBIN ADULT 1.8 MG/DL (0.2-1.0)
[2017-01-13] MEDS ORDERED: DILA100C PO (14:24)
--- NOTE | 2017-01-13 14:34 | RADRPT ---
EXAM DATE/TIME: 01/13/2017 13:52 [facility] COMPARISON: No previous studies available for comparison. INDICATIONS : Status-post seizure today; history of ICH. RADIATION DOSE: 41.52 CTDIvol (mGy) MEDICAL HISTORY : Seizures. ICH SURGICAL HISTORY : None. ENCOUNTER: Initial ACUITY: 1 day PAIN SCALE: 3/10 LOCATION: cranial TECHNIQUE: Multiple contiguous axial images were obtained of the head. Using automated exposure control and adj ustment of the mA and/or kV according to patient size, radiation dose was kept as low as reasonably a chievable to obtain optimal diagnostic quality images. FINDINGS: CEREBRUM: The ventricles are normal for age. No evidence of midline shift, mass lesion, hemorrhage or acute in farction. No extra-axial fluid collections are seen. POSTERIOR FOSSA: The cerebellum and brainstem are intact. The 4th ventricle is midline. The cerebellopontine angle i s unremarkable. EXTRACRANIAL: The visualized portion of the orbits is intact. SKULL: The calvaria is intact. No evidence of skull fracture. CONCLUSION: Negative exam. Juan Pablo Garcia MD on January 13, 2017 at 14:32 Board Certified Radiologist. This report was verified electronically.
[2017-01-13] MEDS ORDERED: EXTR500C PO (14:46)
[2017-01-13] MEDS ORDERED: IBUP-232 PO (14:46)
[2017-01-13 15:00] VITALS: BP 120/78; TEMP 97.8
--- NOTE | 2017-01-13 15:05 | PD ---
Data Data Last Documented VS Vital Signs Date Time Temp Pulse Resp B/P Pulse Ox O2 Delivery O2 Flow Rate FiO2 01/13/17 13:09 98 17 125/86 99 Room Air 01/13/17 12:34 97.7 Orders Complete Blood Count With Diff (01/13/17 12:46) Alcohol (Ethanol) (01/13/17 12:46) Electrocardiogram (01/13/17 ) Ct Brain W/O Iv Contrast(Rout) (01/13/17 ) Blood Glucose (01/13/17 12:46) Ecg Monitoring (01/13/17 12:46) Iv Access Insert/Monitor (01/13/17 12:46) Oximetry (01/13/17 12:46) Comprehensive Metabolic Panel (01/13/17 12:46) Sodium Chloride 0.9% Flush (Ns Flush) (01/13/17 13:00) Lorazepam Inj (Ativan Inj) (01/13/17 13:00) Phenytoin Inj (Dilantin Inj) (01/13/17 13:00) Morphine Inj (Morphine Inj) (01/13/17 13:00) Prochlorperazine Inj (Compazine Inj) (01/13/17 13:45) Diphenhydramine Inj (Benadryl Inj) (01/13/17 13:45) Sodium Chlor 0.9% 1000 Ml Inj (Ns 1000 M (01/13/17 13:45) Labs Laboratory Tests Test 01/13/17 13:00 White Blood Count 19.3 TH/MM3 Red Blood Count 5.35 MIL/MM3 Hemoglobin 16.7 GM/DL Hematocrit 49.2 % Mean Corpuscular Volume 91.9 FL Mean Corpuscular Hemoglobin 31.1 PG Mean Corpuscular Hemoglobin 33.9 % Concent Red Cell Distribution Width 13.1 % Platelet Count 235 TH/MM3 Mean Platelet Volume 8.8 FL Neutrophils (%) (Auto) 87.0 % Lymphocytes (%) (Auto) 4.6 % Monocytes (%) (Auto) 8.3 % Eosinophils (%) (Auto) 0.1 % Basophils (%) (Auto) 0.0 % Neutrophils # (Auto) 16.8 TH/MM3 Lymphocytes # (Auto) 0.9 TH/MM3 Monocytes # (Auto) 1.6 TH/MM3 Eosinophils # (Auto) 0.0 TH/MM3 Basophils # (Auto) 0.0 TH/MM3 CBC Comment DIFF FINAL Differential Comment Sodium Level 139 MEQ/L Potassium Level 3.4 MEQ/L Chloride Level 101 MEQ/L Carbon Dioxide Level 20.9 MEQ/L Anion Gap 17 MEQ/L Blood Urea Nitrogen 16 MG/DL Creatinine 1.53 MG/DL Estimat Glomerular Filtration 54 ML/MIN Rate Random Glucose 126 MG/DL Calcium Level 10.0 MG/DL Total Bilirubin 1.8 MG/DL Aspartate Amino Transf 14 U/L (AST/SGOT) Alanine Aminotransferase 19 U/L (ALT/SGPT) Alkaline Phosphatase 95 U/L Total Protein 8.4 GM/DL Albumin 4.4 GM/DL Ethyl Alcohol Level LESS THAN 3 MG/DL MDM Supervised Visit with SUKHI: Yes Narrative Course The history, exam, and medical decision-making in the associated midlevel provider note were completed with my assistance. I reviewed and agree with the findings presented. I attest that I had a [id number] encounter with the patient on the same day, and personally performed and documented my assessment and findings in the medical record. *My assessment and Findings: This is a 31-year-old male who has a history of traumatic brain injury and subsequent seizures who presents to the emergency department having had a witnessed seizure by his . He has a normal neurologic exam currently. He is complaining of a headache. Labs and CT were reassuring. Patient was loaded with Dilantin. Patient was advised to follow- up with a neurologist and not to drive until he sees a specialist. Diagnosis Primary Impression: Seizure Referrals: Neurologist Patient Instructions: General Instructions, New-Onset Seizure in Adults (ED) Departure Forms: Tests/Procedures Additional Instruction: CT scan of the head is negative. Patient will be discharged home with Dilantin 100 mg 3 times a day #90. Patient also given acetaminophen 500 mg 2 tabs every 6 hours when necessary #60. Patient also given ibuprofen 600 mg 4 times a day when necessary #40. Patient is to follow-up with his neurologist in [place] soon as possible. Patient can return the emergency Department with worsening symptoms as needed. Scripts Ibuprofen 600 Mg [id number] Mg PO Q6H PRN (Pain/Inflammation) #40 TAB Prov:Leticia Witt MD 01/13/17 Acetaminophen (Acetaminophen Extra Strength)500 Mg Cap1,000 Mg PO Q6H PRN (PAIN SCALE 4 TO 10) #60 CAP Ref 1 Prov:Leticia Witt MD 01/13/17 Phenytoin Extended (Dilantin)100 Mg [id number] Mg PO TID #90 CAP Ref 0 Prov:Leticia Witt MD 01/13/17 Disposition: 01 DISCHARGE HOME Condition: Stable Leticia Witt MD Jan 13, 2017 15:05
== END 2017-01-13 15:00 | disposition home or self-care (01) ==
LOC: NEPC 12:32
DX: R56.9 Unspecified convulsions (principal)
CPT/HCPCS: 70450; 80053; 80307; 85025; 96361; 96365; 96375; 99284; J0780; J1165; J1200; J2060; J2270; J7030

== ENCOUNTER 2018-01-30 05:49 | Emergency (ER) | payer MEDICAID, OTHER ==
[~2018-01-30 05:49] MED LIST changes: +DILA100C PO; +EXTR500C PO; +IBUP-232 PO
[2018-01-30 06:13] VITALS: BP 126/82; PULSE 75; RESP 16; O2SAT 100
[2018-01-30] MEDS ORDERED: DIVA250ER PO (06:29)
[2018-01-30] MEDS ORDERED: DIAZ10 PO (06:29)
[2018-01-30] MEDS ORDERED: PROZ20CA11 PO (06:29)
--- NOTE | 2018-01-30 06:32 | PD ---
HPI Chief Complaint: Psychiatric Symptoms Time Seen by Provider: 06:31 Travel History International Travel<30 days: No Contact w/Intl Traveler<30days: No Traveled to known affect area: No History of Present Illness HPI 32-year-old male presents emergency department under Alvarez act for psychiatric evaluation. Patient has been drinking alcohol this evening. He tells me that he caught his cheating on him. This caused him to be very depressed. He attempted suicide by inflicting superficial lacerations to his left anterior wrist. States that he does want to kill himself and he no longer wants to live. States he has attempted suicide in the past. He reports no significant medical needs. He has psychiatric history of PTSD and anxiety. [facility] Past Medical History Anxiety: Yes Depression: Yes Diminished Hearing: No Neurologic: Yes Psychiatric: Yes (BIPOLAR) Seizures: Yes Past Surgical History Neurologic Surgery: No Other Surgery: No Social History Alcohol Use: Yes Tobacco Use: No (1 pack per day) Substance Use: Yes (COCAINE, CRACK, MARIJUANNA) Allergies-Medications (Allergen,Severity, Reaction): Coded Allergies: codeine (Unverified Adverse Reaction, Severe, seizure, 01/30/18) tramadol (Unverified Adverse Reaction, Severe, seizure, 01/30/18) Reported Meds & Prescriptions Reported Meds & Active Scripts Active Reported Prozac (Fluoxetine HCl) 20 Mg Cap 20 Mg PO DAILY Depakote ER (Divalproex Sodium) 250 Mg Virgilio 250 Mg PO DAILY Valium (Diazepam) 10 Mg Tab 10 Mg PO TID PRN Review of Systems Except as stated in HPI: all other systems reviewed are Neg Physical Exam Narrative GENERAL: Well-nourished male patient, tearful but in no acute distress. Strong smell of alcohol on his breath SKIN: Focused skin assessment warm/dry. Multiple superficial lacerations to the left anterior wrist. There is also an abrasion above the right lip. HEAD: Atraumatic. Normocephalic. EYES: Pupils equal and round. Bilateral scleral icterus. No injection or drainage. ENT: No nasal bleeding or discharge. Mucous membranes pink and moist. NECK: Trachea midline. No JVD. CARDIOVASCULAR: Regular rate and rhythm. No murmur appreciated. RESPIRATORY: No accessory muscle use. Clear to auscultation. Breath sounds equal bilaterally. GASTROINTESTINAL: Abdomen soft, non-tender, nondistended. Hepatic and splenic margins not palpable. MUSCULOSKELETAL: No obvious deformities. No clubbing. No cyanosis. No edema. NEUROLOGICAL: Awake and alert. No obvious cranial nerve deficits. Motor grossly within normal limits. Slurred speech. Data Data Last Documented VS Vital Signs Date Time Temp Pulse Resp B/P (MAP) Pulse Ox O2 Delivery O2 Flow Rate FiO2 01/30/18 06:13 75 16 126/82 (97) 100 Orders Orders Complete Blood Count With Diff (01/30/18 06:31) Thyroid Stimulating Hormone (01/30/18 06:31) Basic Metabolic Panel (Bmp) (01/30/18 06:31) Psych Screen (01/30/18 06:31) Drug Screen, Random Urine (01/30/18:31) Alcohol (Ethanol) (01/30/18 06:31) MDM Medical Decision Making Medical Screen Exam Complete: Yes Emergency Medical Condition: Yes Medical Record Reviewed: Yes Differential Diagnosis Mood disorder versus personality disorder versus adjustment reaction disorder versus intoxication Narrative Course 32-year-old male presents emergency department for evaluation under Alvarez. Patient is tearful but without distress. Vital signs are stable. He does have superficial lacerations to the left anterior wrist. None of these need to be repaired. He also has a abrasion above the right lip. Lab work is sent. Pending no acute lab abnormality, patient is medically cleared to undergo psychiatric screening for further evaluation and disposition. Mental health screening discussed with the patient. Psychiatric screen ordered. Diagnosis Primary Impression: Substance induced mood disorder Jerri Williamson Jan 30, 2018 06:32
[2018-01-30 07:06] LABS: AUTOMATED NEUTROPHIL # 5.7 TH/MM3 (1.8-7.7); BASOPHIL # 0.1 TH/MM3 (0-0.2); BASOPHIL % 0.6 % (0.0-2.0); EOSINOPHIL # 0.1 TH/MM3 (0-0.4); EOSINOPHIL % 1.3 % (0.0-4.0); HEMATOCRIT 49.4 % (39.0-51.0); HEMOGLOBIN 17.3 GM/DL (13.0-17.0); LYMPH % 30.1 % (9.0-44.0); LYMPHOCYTE # 2.9 TH/MM3 (1.0-4.8); MEAN CELL VOLUME 92.9 FL (80.0-100.0); MEAN CORPUSCULAR HEMOGLOBIN 32.5 PG (27.0-34.0); MEAN CORPUSCULAR HGB CONC 34.9 % (32.0-36.0); MEAN PLATELET VOLUME 8.1 FL (7.0-11.0); MONO % 9.4 % (0.0-8.0); MONOCYTE # 0.9 TH/MM3 (0-0.9); NEUT % 58.6 % (16.0-70.0); PLATELET COUNT 250 TH/MM3 (150-450); RED BLOOD COUNT 5.32 MIL/MM3 (4.50-5.90); RED CELL DISTRIBUTION WIDTH 13.4 % (11.6-17.2); WHITE BLOOD COUNT 9.7 TH/MM3 (4.0-11.0)
[2018-01-30 07:21] LABS: BICARBONATE 27.7 MEQ/L (21.0-32.0); CALCIUM 8.8 MG/DL (8.5-10.1); CREATININE 1.09 MG/DL (0.60-1.30)
[2018-01-30] MEDS ORDERED: NICOTINE 21 MG/24 HR PATCH T-DERMAL ONE (13:15)
[2018-01-30] MEDS ORDERED: LORazepam 2 MG/ML VIAL ONE (14:00)
[2018-01-30] MEDS ORDERED: HALOPERIDOL LACTATE 5 MG/ML AMP ONE (14:02)
[2018-01-30] MEDS ORDERED: diphenhydrAMINE HCL 50 MG/ML VIAL ONE (14:02)
[2018-01-30] MEDS ORDERED: LORazepam 2 MG/ML VIAL IM STA (14:03)
[2018-01-30] MEDS ORDERED: diphenhydrAMINE HCL 50 MG/ML VIAL IM STA (14:03)
[2018-01-30] MEDS ORDERED: HALOPERIDOL LACTATE 5 MG/ML AMP IM STA (14:03)
[2018-01-30 17:15] VITALS: BP 113/62; PULSE 68; RESP 14; TEMP 98.2; O2SAT 98
[2018-01-30 18:19] VITALS: BP 108/63; PULSE 81; RESP 18; O2SAT 97
[2018-01-31 05:28] VITALS: BP 124/60; PULSE 60; RESP 12; TEMP 99.5; O2SAT 97
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
--- NOTE | 2018-01-31 12:13 | PD ---
Physical Exam Time Seen by Provider: 12:[address] Parry has evaluated the patient, lifted Alvarez act and cleared the patient for discharge. Data Data Last Documented VS Vital Signs Date Time Temp Pulse Resp B/P (MAP) Pulse Ox O2 Delivery O2 Flow Rate FiO2 01/31/18 05:28 99.5 60 12 124/60 (81) 97 01/30/18 18:19 Room Air Orders Orders Complete Blood Count With Diff (01/30/18 06:31) Thyroid Stimulating Hormone (01/30/18 06:31) Basic Metabolic Panel (Bmp) (01/30/18 06:31) Psych Screen (01/30/18 06:31) Drug Screen, Random Urine (01/30/18 06:31) Alcohol (Ethanol) (01/30/18 06:31) Diet Regular Basic (01/30/18 Breakfast) Nicotine 21 Mg Patch.24 Hr (Habitrol 21 (01/30/18 13:15) Diet Regular Basic (01/30/18 Lunch) Lorazepam Inj (Ativan Inj) (01/30/18 14:00) Haloperidol Inj (Haldol Inj) (01/30/18 14:02) Diphenhydramine Inj (Benadryl Inj) (01/30/18 14:02) Haloperidol Inj (Haldol Inj) (01/30/18 14:03) Lorazepam Inj (Ativan Inj) (01/30/18 14:03) Diphenhydramine Inj (Benadryl Inj) (01/30/18 14:03) Diet Regular Basic (01/31/18 Breakfast) Diet Regular Basic (01/31/18 Lunch) Labs Laboratory Tests Test 01/30/18 06:45 White Blood Count 9.7 TH/MM3 Red Blood Count 5.32 MIL/MM3 Hemoglobin 17.3 GM/DL Hematocrit 49.4 % Mean Corpuscular Volume 92.9 FL Mean Corpuscular Hemoglobin 32.5 PG Mean Corpuscular Hemoglobin Concent 34.9 % Red Cell Distribution Width 13.4 % Platelet Count 250 TH/MM3 Mean Platelet Volume 8.1 FL Neutrophils (%) (Auto) 58.6 % Lymphocytes (%) (Auto) 30.1 % Monocytes (%) (Auto) 9.4 % Eosinophils (%) (Auto) 1.3 % Basophils (%) (Auto) 0.6 % Neutrophils # (Auto) 5.7 TH/MM3 Lymphocytes # (Auto) 2.9 TH/MM3 Monocytes # (Auto) 0.9 TH/MM3 Eosinophils # (Auto) 0.1 TH/MM3 Basophils # (Auto) 0.1 TH/MM3 CBC Comment DIFF FINAL Differential Comment Blood Urea Nitrogen 5 MG/DL Creatinine 1.09 MG/DL Random Glucose 81 MG/DL Calcium Level 8.8 MG/DL Sodium Level 145 MEQ/L Potassium Level 3.8 MEQ/L Chloride Level 109 MEQ/L Carbon Dioxide Level 27.7 MEQ/L Anion Gap 8 MEQ/L Estimat Glomerular Filtration Rate 79 ML/MIN Thyroid Stimulating Hormone 3rd Gen 0.346 uIU/ML Urine Opiates Screen NEG Urine Barbiturates Screen NEG Urine Amphetamines Screen NEG Urine Benzodiazepines Screen POS Urine Cocaine Screen NEG Urine Cannabinoids Screen NEG Ethyl Alcohol Level 237 MG/DL MDM Supervised Visit with SUKHI: No Narrative Course Dr. Parry has evaluated the patient, lifted Antonio kate and cleared the patient for discharge. Patient contracts safety. Denies suicidal or homicidal ideations. Patient will be provided community resource packet to [facility] for follow-up. Has friends and family for support. Patient was medically cleared by alternate provider prior to psych screening. Patient has been evaluated by psychiatry and and is now cleared for discharge. Diagnosis Primary Impression: Substance induced mood disorder Referrals: [facility] (Out patient) [facility] Primary Care Physician Psychiatrist [facility] Patient Instructions: Abuse of Alcohol (ED), Alcohol Dependence (ED), Alcohol Intoxication (ED), General Instructions Additional Instruction: Contract safety to your self and others Follow-up with psychiatry Follow-up with primary care provider Follow-up with Harj[facility] Cisse Return to the emergency department immediately with worsening of symptoms Med/Other Pt SpecificInfo: No Change to Meds, No Meds Exist/No RX given Disposition: 01 DISCHARGE HOME Condition: Stable Lillie Hanley Jan 31, 2018 12:13
[2018-01-31 12:19] VITALS: BP 118/62
== END 2018-01-31 12:25 | disposition home or self-care (01) ==
LOC: NEPD 05:49 → NEPJ 01-31 12:25
DX: F19.94 Other psychoactive substance use, unspecified with psychoactive substance-induced mood disorder (principal); F10.129 Alcohol abuse with intoxication, unspecified; Y90.7 Blood alcohol level of 200-239 mg/100 ml; S60.812A Abrasion of left wrist, initial encounter; X78.9XXA Intentional self-harm by unspecified sharp object, initial encounter; F31.9 Bipolar disorder, unspecified; F43.10 Post-traumatic stress disorder, unspecified; F14.90 Cocaine use, unspecified, uncomplicated; F12.90 Cannabis use, unspecified, uncomplicated
CPT/HCPCS: 80048; 80307; 84443; 85025; 96372; 99284; J1200; J1630; J2060

== ENCOUNTER 2018-03-16 00:47 | Emergency (ER) | payer MEDICAID, OTHER ==
[~2018-03-16] VITALS: Ht 180.3 cm; Wt 64.5 kg
[~2018-03-16 00:47] MED LIST changes: -BUPR150CR PO; +DIAZ10 PO; -DIAZ5 PO; -DILA100C PO; +DIVA250ER PO; -EXTR500C PO; -IBUP-232 PO; -LEVE250 PO; -OXYC1TAB36 PO; +PROZ20CA11 PO
[2018-03-16 00:59] VITALS: BP 137/65; PULSE 99; RESP 16; TEMP 98.6; O2SAT 94
[2018-03-16] MEDS ORDERED: BUPR100CR PO (02:11)
[2018-03-16] MEDS ORDERED: PAXI30TA7 PO (02:11)
[2018-03-16] MEDS ORDERED: IBUPROFEN 600 MG TAB PO ONE (02:15)
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
[2018-03-16 04:25] LABS: AUTOMATED NEUTROPHIL # 6.9 TH/MM3 (1.8-7.7); BASOPHIL # 0.3 TH/MM3 (0-0.2); BASOPHIL % 3.3 % (0.0-2.0); EOSINOPHIL # 0.1 TH/MM3 (0-0.4); EOSINOPHIL % 0.7 % (0.0-4.0); HEMOGLOBIN 16.8 GM/DL (13.0-17.0); LYMPH % 21.6 % (9.0-44.0); LYMPHOCYTE # 2.2 TH/MM3 (1.0-4.8); MEAN CELL VOLUME 92.1 FL (80.0-100.0); MEAN CORPUSCULAR HEMOGLOBIN 32.2 PG (27.0-34.0); MEAN PLATELET VOLUME 7.3 FL (7.0-11.0); MONO % 5.8 % (0.0-8.0); MONOCYTE # 0.6 TH/MM3 (0-0.9); NEUT % 68.6 % (16.0-70.0); PLATELET COUNT 256 TH/MM3 (150-450); RED BLOOD COUNT 5.21 MIL/MM3 (4.50-5.90); RED CELL DISTRIBUTION WIDTH 13.5 % (11.6-17.2)
[2018-03-16 04:39] LABS: ALBUMIN 4.1 GM/DL (3.4-5.0); ALT (GPT) 21 U/L (12-78); AST (GOT) 29 U/L (15-37); BICARBONATE 27.1 MEQ/L (21.0-32.0); BLOOD UREA NITROGEN 10 MG/DL (7-18); CHLORIDE 104 MEQ/L (98-107); GLOMERULAR FILTRATION RATE 71 ML/MIN (>89); GLUCOSE,RANDOM 98 MG/DL (74-106); SODIUM (NA) 142 MEQ/L (136-145)
[2018-03-16 04:49] LABS: ALKALINE PHOSPHATASE 88 U/L (45-117); TOTAL BILIRUBIN ADULT 0.6 MG/DL (0.2-1.0); TOTAL PROTEIN 7.3 GM/DL (6.4-8.2)
[2018-03-16 10:48] VITALS: BP 112/61; PULSE 65; RESP 16; TEMP 98.7; O2SAT 97
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
== END 2018-03-16 12:30 | disposition home or self-care (01) ==
LOC: NEDAMB 00:47
DX: S00.81XA Abrasion of other part of head, initial encounter (principal); T14.8XXA Other injury of unspecified body region, initial encounter; F12.90 Cannabis use, unspecified, uncomplicated; F17.210 Nicotine dependence, cigarettes, uncomplicated; Y04.0XXA Assault by unarmed brawl or fight, initial encounter; Z79.899 Other long term (current) drug therapy
CPT/HCPCS: 80053; 80307; 84443; 85025; 99283